=== PATIENT | female | born 1955 | race Caucasian/White ===

== ENCOUNTER 2017-01-26 14:31 | Emergency (ER) | payer OTHER, MEDICAID ==
[2017-01-26 15:14] VITALS: BP 128/72
--- NOTE | 2017-01-26 15:20 | XRAY Preliminary Report ---
Exam: XR Foot 3 View RT IMPRESSION: 1. No acute bony abnormality. 2. Moderate degenerative changes first MTP joint. [facility] SITE ID: [id number]
--- NOTE | 2017-01-26 15:27 | XRAY Report ---
EXAM: RIGHT FOOT RADIOGRAPHY EXAM DATE: 01/26/2017 02:59 PM. CLINICAL HISTORY: Dorsal and lateral pain after wheelchair ran over the foot today. COMPARISON: None. TECHNIQUE: 3 views. FINDINGS: Bones: Normal. No fractures or bone lesions. Joints: Marked narrowing first MTP joint with moderate amount of subcortical sclerosis both margins, small amount of adjacent dystrophic calcifications without subluxation. Soft Tissues: Normal. No soft tissue swelling. IMPRESSION: 1. No acute bony abnormality. 2. Moderate degenerative changes first MTP joint. [facility] Referring Provider Line: [phone] SITE ID: [id number]
[2017-01-26] MEDS ORDERED: IBUPROFEN 800 MG TABLET PO STA (15:29)
--- NOTE | 2017-01-26 15:32 | ED Physician Documentation ---
PD HPI LOWER EXT INJURY - Stated complaint Stated Complaint: RT FOOT INJ - Chief complaint Chief Complaint: Ext Problem - History obtained from History obtained from: Patient - History of Present Illness PD HPI LOW EXT INJURY LOCATION: Right, Foot Type of injury: Crush Where injury occurred: Other (store) Timing - onset: How many hours ago (3) Worsened by: Moving, Palpating, Other (Weight bearing.) Associated symptoms: Swelling Similar symptoms before: Has not had sx before - Additional information Additional information: The patient is a 61-year-old female who presents with right foot pain. Her foot was rolled over by electric wheelchair about 3 hours prior to arrival. She has had pain with weightbearing since that time, and has noticed swelling and discoloration. She denies any other injuries. Review of Systems Constitutional: denies: Fever Nose: denies: Congestion GI: denies: Nausea, Vomiting Skin: denies: Rash Musculoskeletal: reports: Extremity pain (Right foot) Neurologic: denies: Focal weakness, Numbness PD PAST MEDICAL HISTORY - Past Medical History Cardiovascular: None Respiratory: None Endocrine/Autoimmune: None GI: GERD, Other Psych: Depression, Anxiety Musculoskeletal: Fibromyalgia - Past Surgical History Past Surgical History: Yes General: Cholecystectomy /PATTERN MARKER: Dilation and currettage, Tubal ligation, Hysterectomy - Present Medications Home Medications: Ambulatory Orders Medication Instructions Recorded Confirmed Alprazolam [Xanax] 0.5 mg PO TID PRN 04/18/15 06/23/16 Nortriptyline [Pamelor] 10 mg PO HS #30 capsule 04/18/15 06/23/16 Sertraline [Zoloft] 100 mg PO DAILY 04/18/15 06/23/16 Albuterol Sulfate [Ventolin Hfa] 2 puffs IH Q6H PRN #1 hfa.aer.ad 01/25/1606/23 Methocarbamol [Robaxin-750] 750 mg PO DAILY PM PRN 04/06/16 06/23/16 Pseudoephedrine [Sudafed] 30 mg PO Q6H PRN #20 tablet 04/06/16 06/23/16 guaiFENesin/CODEINE [Robitussin AC] 5 - 10 ml PO Q6H PRN #120 udc 04/06/1606/23 Cephalexin [Keflex] 500 mg PO Q6H #28 capsule 06/23/16 HYDROcod/ACETAM 5/325 [[place] 5/325] 1 ea PO Q6H PRN #10 tablet 06/23/16 - Allergies Allergies/Adverse Reactions: Allergies Allergy/AdvReac Type Severity Reaction Status Date / Time codeine Allergy Hallucinati Verified 01/26/17 14:46 ons - Social History Does the pt smoke?: Yes Smoking Status: Current every day smoker Does the pt drink ETOH?: Yes Does the pt have substance abuse?: No - Immunizations Immunizations are current?: Yes PD ED PE NORMAL - Vitals Vital signs reviewed: Yes (Normal) - General General: Alert and oriented X 3, Well developed/nourished - HEENT HEENT: Atraumatic - Respiratory Respiratory: No respiratory distress - Derm Derm: No rash - Extremities Extremities: No edema, No calf tenderness / cord, Other (There is mild swelling and very mild ecchymosis over the dorsum of the right distal foot at the base of the second third and fourth toes. There is no tenderness with axial loading on the toes. There is no break in the integument. Distal neurovascular is intact.) - Neuro Neuro: Alert and oriented X 3, No motor deficit, No sensory deficit Results - Vitals Vitals: Vital Signs - 24 hr 01/26/17 14:45 Temperature 36.7 C Heart Rate 89 Respiratory 14 Rate Blood Pressure 128/72 O2 Saturation 96 Oxygen O2 Source Room air - Rads (name of study) right foot Radiology: Prelim report reviewed, EMP read contemporaneously, See rad report ( 1. No acute bony abnormality. 2. Moderate degenerative changes first MTP joint. ) PD MEDICAL DECISION MAKING - ED course Complexity details: reviewed results, re-evaluated patient, considered differential, d/w patient ED course: The patient's presentation is most consistent with contusion to the right foot. There is no evidence of fracture or dislocation on x-ray examination. Treatment in the emergency department included administration of ibuprofen 800 mg orally, and application of a 4 inch Angel Luis wrap. I discussed with her the expected course of injury, symptomatic treatment and outpatient follow-up, as well as potentially worrisome signs or symptoms that should prompt reevaluation in the emergency department. A labor and industries form was completed. Departure - Departure Disposition: 01 Home, Self Care Clinical Impression: Contusion of right foot Qualifiers: Encounter type: initial encounter Qualified Code(s): S90.31XA - Contusion of right foot, initial encounter Condition: Stable Instructions: ED Contusion Foot Comments: 1. Keep your right foot elevated as much the time as possible. 2. Apply ice pack intermittently for the first 2 or 3 days. 3. You can use ibuprofen, up to 800 mg 3 times daily. 4. Let pain be her guide to activity level. 5. Follow-up with your primary physician within 2 weeks if not completely resolved. 6. Return to the emergency department if you develop increasing pain or swelling, or otherwise worsening symptoms. Discharge Date/Time: 01/26/17 15:49
[2017-01-26] MEDS ORDERED: IBUPROFEN 800 MG TABLET PO ONE (15:33)
== END 2017-01-26 15:49 | disposition home or self-care (01) ==
LOC: ED 14:31
DX: S90.31XA Contusion of right foot, initial encounter (principal); W22.8XXA Striking against or struck by other objects, initial encounter; Y92.512 Supermarket, store or market as the place of occurrence of the external cause
CPT/HCPCS: 73630; 99283; A9270

== ENCOUNTER 2017-01-29 13:40 | Emergency (ER) | payer MEDICAID ==
[2017-01-29 13:57] VITALS: BP 138/76
--- NOTE | 2017-01-29 14:40 | ED Physician Documentation ---
PD HPI WOUND RECHECK - Stated complaint Stated Complaint: R FOOT FU - Chief complaint Chief Complaint: General - Histroy obtained from History obtained from: Patient - History of Present Illness Location: Right Lower Extremity (top of foot. Had injury to it and was off work for couple of days. She is feeling better and needs note to return to work.) Timing - onset: How many days ago (few) Recently seen: Emergency Dept Review of Systems Skin: denies: Abrasion (s), Laceration (s) Neurologic: denies: Focal weakness, Numbness PD PAST MEDICAL HISTORY - Past Medical History Cardiovascular: None Respiratory: None Endocrine/Autoimmune: None GI: GERD, Other Psych: Depression, Anxiety Musculoskeletal: Fibromyalgia - Past Surgical History Past Surgical History: Yes General: Cholecystectomy /BAGGER MEAT: Dilation and currettage, Tubal ligation, Hysterectomy - Present Medications Home Medications: Ambulatory Orders Medication Instructions Recorded Confirmed Alprazolam [Xanax] 0.5 mg PO TID PRN 04/18/15 06/23/16 Nortriptyline [Pamelor] 10 mg PO HS #30 capsule 04/18/15 06/23/16 Sertraline [Zoloft] 100 mg PO DAILY 04/18/15 06/23/16 Albuterol Sulfate [Ventolin Hfa] 2 puffs IH Q6H PRN #1 hfa.aer.ad 01/25/1606/23 Methocarbamol [Robaxin-750] 750 mg PO DAILY PM PRN 04/06/16 06/23/16 Pseudoephedrine [Sudafed] 30 mg PO Q6H PRN #20 tablet 04/06/16 06/23/16 guaiFENesin/CODEINE [Robitussin AC] 5 - 10 ml PO Q6H PRN #120 udc 04/06/1606/23 Cephalexin [Keflex] 500 mg PO Q6H #28 capsule 06/23/16 HYDROcod/ACETAM 5/325 [[place] 5/325] 1 ea PO Q6H PRN #10 tablet 06/23/16 - Allergies Allergies/Adverse Reactions: Allergies Allergy/AdvReac Type Severity Reaction Status Date / Time codeine Allergy Hallucinati Verified 01/26/17 14:46 ons - Social History Does the pt smoke?: Yes Smoking Status: Current every day smoker Does the pt drink ETOH?: Yes Does the pt have substance abuse?: No - Immunizations Immunizations are current?: Yes PD ED PE NORMAL - Vitals Vital signs reviewed: Yes - General General: Alert and oriented X 3, No acute distress, Well developed/nourished - Derm Derm: Normal color, Warm and dry - Extremities Extremities: Other (foot with good movement, gait without limping. Good color and cap refill. Just mild tenderness to palpation of top of foot. ) Results - Vitals Vitals: Vital Signs - 24 hr 01/29/17 13:53 Temperature 36.5 C Heart Rate 72 Respiratory 14 Rate Blood Pressure 138/76 H O2 Saturation 100 Oxygen O2 Source Room air PD MEDICAL DECISION MAKING - ED course Complexity details: reviewed old records, considered differential (she is feeling better and needs note to return to work. ), d/w patient Departure - Departure Disposition: 01 Home, Self Care Clinical Impression: Contusion of right foot Qualifiers: Encounter type: subsequent encounter Qualified Code(s): S90.31XD - Contusion of right foot, subsequent encounter Condition: Stable Record reviewed to determine appropriate education?: Yes Forms: Activity restrictions Discharge Date/Time: 01/29/17 15:17
== END 2017-01-29 15:17 | disposition home or self-care (01) ==
LOC: ED 13:40
DX: S90.31XD Contusion of right foot, subsequent encounter (principal); X58.XXXD Exposure to other specified factors, subsequent encounter
CPT/HCPCS: 99282

== ENCOUNTER 2019-07-31 10:19 | Outpatient (CLI) | payer OTHER ==
--- NOTE | 2019-07-31 17:04 | XRAY Report ---
Reason: CHRONIC OBSTRUCTIVE PULMONARY DISEASE, UNSPECIFIED Procedure Date: 07/31/2019 Accession Number: [id number] / [id number] Procedure: XR - Chest 2 View X-Ray CPT Code: 04041 Final Report FULL RESULT: EXAM: CHEST RADIOGRAPHY EXAM DATE: 07/31/2019 10:27 AM. CLINICAL HISTORY: CHRONIC OBSTRUCTIVE PULMONARY DISEASE, UNSPECIFIED. COMPARISON: CHEST 2 VIEW PA/LAT 04/06/2016 2:44 PM CHEST 2 VIEW PA/LAT 01/25/2016 1:11 PM ABDOMEN/PELVIS W/ 06/23/2016 2:42 PM. TECHNIQUE: 2 views. FINDINGS: Lungs/Pleura: No dense consolidation. No pneumothorax. Minimal chronic blunting of the left costophrenic sulcus again seen. No pulmonary edema. No large effusion. Mediastinum: Heart and mediastinal contours are unremarkable. Other: None. IMPRESSION: No acute radiographic pulmonary abnormalities. [facility]
== END 2019-07-31 10:20 | disposition home or self-care (01) ==
LOC: DI 10:19
PROVIDERS: ATTEND Family Medicine
DX: J44.9 Chronic obstructive pulmonary disease, unspecified (principal); J40 Bronchitis, not specified as acute or chronic
CPT/HCPCS: 71046

== ENCOUNTER 2021-12-22 08:00 | Outpatient (CLI) | payer OTHER ==
--- NOTE | 2021-12-22 16:12 | XRAY Report ---
PROCEDURE: Chest 2 View X-Ray INDICATIONS: COUGH TECHNIQUE: 2 view(s) of the chest. COMPARISON: Chest x-ray 07/31/2019 FINDINGS: Surgical changes and devices: None. Lungs and pleura: There is trace blunting of the costophrenic angles bilaterally, unchanged and likel y representing scarring. No consolidations. Mediastinum: Mediastinal contours are normal. Heart size is normal. Bones and chest wall: No suspicious bony abnormalities. Soft tissues appear unremarkable. IMPRESSION: No acute pulmonary process. Reviewed by: Flora Lan MD on 12/22/2021 4:11 PM PDT Approved by: Flora Lan MD on 12/22/2021 4:11 PM PDT Station ID: [id number]
== END 2021-12-22 23:59 | disposition home or self-care (01) ==
LOC: DI.N 08:00
PROVIDERS: ATTEND Family Medicine
DX: R05.9 Cough, unspecified (principal)